=== PATIENT | female | born 1985 | race Hispanic/Latino ===

== ENCOUNTER 2017-11-23 11:48 | Emergency (ER) | payer OTHER ==
[2017-11-23 12:03] VITALS: BP 114/72; PULSE 76; RESP 18; TEMP 98.3; O2SAT 100
--- NOTE | 2017-11-23 12:39 | ED PDOC ---
Lower Extremity Pain/Injury Time Seen by Provider: 11/23/17 12:03 Chief Complaint (Nursing): Lower Extremity Problem/Injury Chief Complaint (Provider): Right Buttock and Right Groin Pain History Per: Patient History/Exam Limitations: no limitations Onset/Duration Of Symptoms: Other (x1 month) Current Symptoms Are (Timing): Still Present Severity: None Additional Complaint(s): 32 year old female presents to the ED complaining of right buttock and right groin pain radiating down the right knee x1 month. The patient states that last night her symptoms became worse and she took advil which offered her transient relief. As per patient, her symptoms began while she was off from work and admits that during this time she was sitting down for most of the day. Denies trauma, bowel/bladder incontinence, pelvic pain, numbness, tingling, dysuria. PMD: FAMILY PROVIDER,NO Past Medical History Reviewed: Historical Data, Nursing Documentation, Vital Signs Vital Signs: Last Vital Signs Temp 98.3 F 11/23/17 12:00 Pulse 76 11/23/17 12:00 Resp 18 11/23/17 12:00 BP 114/72 11/23/17 12:00 Pulse Ox 100 11/23/17 12:00 - Medical History PMH: No Chronic Diseases - Surgical History Surgical History: No Surg Hx - Family History Family History: States: Unknown Family Hx - Home Medications Home Medications: Ambulatory Orders Medication Instructions Recorded Cyclobenzaprine [Cyclobenzaprine 10 mg PO Q8 PRN #20 tab 11/23/17 HCl] Naproxen [Naprosyn] 500 mg PO BID PRN #30 tab 11/23/17 - Allergies Allergies/Adverse Reactions: Allergies Allergy/AdvReac Type Severity Reaction Status Date / Time No Known Allergies Allergy Verified 11/23/17 12:00 Review of Systems Genitourinary Female: Negative for: Dysuria, Incontinence, Pelvic Pain Musculoskeletal: Positive for: Other (Right buttock pain; right groin pain.) Neurological: Negative for: Numbness (no tingling) Physical Exam - Reviewed Nursing Documentation Reviewed: Yes Vital Signs Reviewed: Yes - Physical Exam Appears: Positive for: Non-toxic, No Acute Distress Head Exam: Positive for: NORMAL INSPECTION Skin: Positive for: Normal Color, Warm, Dry. Negative for: Rash Gastrointestinal/Abdominal: Positive for: Normal Exam, Bowel Sounds, Soft. Negative for: Tenderness, Guarding, Rebound Back: Positive for: Normal Inspection. Negative for: L CVA Tenderness, R CVA Tenderness, Vertebral Tenderness Extremity: Positive for: Normal ROM, Other (minimal right buttock tenderness.). Negative for: Tenderness, Deformity, Swelling Neurologic/Psych: Positive for: Alert, Oriented, Gait - ECG O2 Sat by Pulse Oximetry: 100 (RA) Pulse Ox Interpretation: Normal Medical Decision Making Medical Decision Makin Initial Impression 32 y/o female presenting with right buttock and right groin pain Initial Plan: * Reevaluation Patient is medically stable and will be discharged home with prescriptions for naprosyn and cyclobenzaprine. Documented by Amanda Vaughan acting as a scribe for Wesley Jefferson PA-C. All medical record entries made by the Scribe were at my direction and personally dictated by me. I have reviewed the chart and agree that the record accurately reflects my personal performance of the history, physical exam, medical decision making, and the department course for this patient. I have also personally directed, reviewed, and agree with the discharge instructions and disposition. Disposition - Clinical Impression Clinical Impression: Sciatica - Patient ED Disposition Is Patient to be Admitted: No Counseled Patient/Family Regarding: Studies Performed, Diagnosis, Rx Given - Disposition Referrals: Janet [facility] [Outside] Disposition: Routine/Home Disposition Time: 12:30 Condition: STABLE Prescriptions: Cyclobenzaprine [Cyclobenzaprine HCl] 10 mg PO Q8 PRN #20 tab PRN Reason: Muscle Spasm Naproxen [Naprosyn] 500 mg PO BID PRN #30 tab PRN Reason: Pain Instructions: Sciatica (ED) Forms: [employer] (Armenian) Print Language: SYRIAC - POA Present On Arrival: None
== END 2017-11-23 12:46 | disposition home or self-care (01) ==
LOC: H.ER 11:48
DX: M54.30 Sciatica, unspecified side (principal)